=== PATIENT | male | born 1985 | race Two or more races ===

== ENCOUNTER 2025-01-10 21:30 | Emergency (ER) | payer OTHER ==
[~2025-01-10] VITALS: Ht 170.2 cm; Wt 78.0 kg
[2025-01-10 21:55] VITALS: BP 166/101; PULSE 74; RESP 15; O2SAT 99
[2025-01-10] MEDS: TETanus/Pertussis (Acell)/Diphther VAC/PF (Tdap-Adult) 0.5ml syringe IMVAC ONE (23:49)
--- NOTE | 2025-01-11 00:06 | Physician Documentation ---
History of Present Illness ~ Chief Complaint: Foot pain Stated Complaint: TOE PAIN Time Seen by MD: 23:59 HPI Document created in error Tetanus witin 5 years: No Medication Reconciliation Allergies: Coded Allergies: No Known Allergies (Unverified , 01/10/25) Physical Exam Vital Signs: Heart Rate: 74, Respiratory Rate: 15, BP: 166/101, Pulse Oximetry: 99, Weight: 78.000 Progress Results/Orders Results/Orders Vital Signs 01/10/25 21:55 Pulse 74 Resp 15 B/P (MAP) 166/101 Pulse Ox 99 Departure Referrals: NO PRIMARY CARE PROVIDER (PCP) NICCI BOSCH MD Jan 11, 2025 00:06 ENRIQUE CHO Jan 11, 2025 00:13
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
== END 2025-01-11 00:14 | disposition home or self-care (01) ==
LOC: ER 21:32
DX: M79.675 Pain in left toe(s) (principal)
CPT/HCPCS: 90471; 90715; 99283